=== PATIENT | female | born 1985 | race Caucasian/White ===

== ENCOUNTER 2016-11-03 17:30 | Emergency (ER) | payer OTHER ==
[~2016-11-03] VITALS: Ht 170.2 cm; Wt 114.3 kg
[2016-11-03 18:30] LABS: microscopic required? YES; urine erythrocyte 3+ (NEGATIVE)
[2016-11-03 19:11] LABS: BASOPHIL % 0.2 % (0-2); PLATELET COUNT 224 x10^3mcL (130-400); RED CELL DISTRIBUTION WIDTH 13.3 % (11.5-14.5)
[2016-11-03 20:15] VITALS: BP 147/78
[2016-11-03 20:33] LABS: AMPHETAMINE QUAL UR NONE DETECTED (NEG <=1000)
== END 2016-11-03 20:15 | disposition short-term general hospital (02) ==
LOC: ED 17:30
PROVIDERS: Specialist
DX: O46.93 Antepartum hemorrhage, unspecified, third trimester (principal); Z3A.28 28 weeks gestation of pregnancy; E66.9 Obesity, unspecified
CPT/HCPCS: J0690; J1885; J2270; J2405; J3010; J3490; J7030